=== PATIENT | female | born 1990 ===

== ENCOUNTER 2022-04-11 03:41 | Day surgery (SDC) | payer OTHER ==
[2022-04-11] MEDS ORDERED: Morphine 4 MG/ML VIAL IVPUSH ONE (03:59)
[2022-04-11] MEDS ORDERED: Ketorolac 30 MG/ML SDV IVPUSH ONE ×2 (03:59→08:01)
[2022-04-11] MEDS: Sodium Chloride 0.9% 10 ML Syringe FLUSH PRN ×5 (04:00→21:14)
[2022-04-11] MEDS ORDERED: Sodium Chloride 0.9% 1,000 ML IV SCH (04:00)
[2022-04-11 04:22] LABS: ESTIMATED GFR 89 mL/min (>60)
[2022-04-11] MEDS ORDERED: Iopamidol 755 MG/ML 150 ML Bottle IV ONE (05:00)
[2022-04-11] MEDS ORDERED: HYDROmorphone 2 MG/ML SDV IVPUSH STA (06:49)
[2022-04-11] MEDS ORDERED: Lactated Ringers 1,000 ML IV ONE (08:01)
[2022-04-11] MEDS ORDERED: Ondansetron 4 MG/2 ML SDV IVPUSH ONE (08:01)
[2022-04-11] MEDS ORDERED: Dexamethasone 4 MG/ML 5 ML MDV IVPUSH ONE (08:01)
[2022-04-11] MEDS ORDERED: Midazolam 1 MG/ML 2 ML SDV IV ONE (08:01)
[2022-04-11] MEDS ORDERED: Rocuronium 100 MG/10 ML MDV IV ONE (08:01)
[2022-04-11] MEDS ORDERED: Propofol 200 MG/20 ML SDV IV ONE (08:01)
[2022-04-11] MEDS ORDERED: HYDROmorphone 2 MG/ML SDV IV ONE (08:01)
[2022-04-11] MEDS ORDERED: Sugammadex Sodium 200 MG/2 ML VIAL IV ONE (08:01)
[2022-04-11] MEDS ORDERED: fentaNYL 100 MCG/2 ML SDV IV ONE (08:01)
[2022-04-11] MEDS ORDERED: Morphine 2 MG/ML SYRINGE IVPUSH PRN ×3 (08:04→13:16)
[2022-04-11] MEDS: Lactated Ringers 1,000 ML IV SCH ×2 (08:20→21:14)
[2022-04-11] MEDS: Piperacillin/Tazobactam 3.375 GM in Sodium Chloride 0.9% 50 ML IV SCH ×3 (08:36→20:27)
[2022-04-11] MEDS ORDERED: Bupivacaine 0.5%/EPINEPHrine 1:200,000 10 ML SDV INJECT ONE (12:30)
[2022-04-11] MEDS ORDERED: Ondansetron 4 MG/2 ML SDV IVPUSH PRN (13:16)
[2022-04-11] MEDS ORDERED: Lactated Ringers 1,000 ML IV SCH (13:30)
[2022-04-11] MEDS ORDERED: Piperacillin/Tazobactam 3.375 GM in Sodium Chloride 0.9% 50 ML IV SCH (13:30)
[2022-04-11] MEDS: Acetaminophen/HYDROcodone 325-5 MG Tab PO PRN ×2 (15:12→20:24)
[2022-04-12] MEDS: Acetaminophen/HYDROcodone 325-5 MG Tab PO PRN ×2 (01:38→08:45)
[2022-04-12] MEDS: Sodium Chloride 0.9% 10 ML Syringe FLUSH PRN (01:42)
[2022-04-12] MEDS: Piperacillin/Tazobactam 3.375 GM in Sodium Chloride 0.9% 50 ML IV SCH ×2 (01:42→08:45)
[2022-04-12] MEDS: Lactated Ringers 1,000 ML IV SCH (05:45)
== END 2022-04-12 11:15 | disposition home or self-care (01) ==
LOC: FB.ED 03:41 → FB.SDS 08:00 → FB.MS 08:02 → FB.SDS 04-12 11:15
PROVIDERS: ATTEND Surgery
DX: K35.80 Unspecified acute appendicitis (principal); Z88.8 Allergy status to other drugs, medicaments and biological substances; Z87.891 Personal history of nicotine dependence; Z01.812 Encounter for preprocedural laboratory examination; Z20.822 Contact with and (suspected) exposure to COVID-19
CPT/HCPCS: 00840; 36415; 44970; 74177; 80053; 81001; 82150; 83690; 84702; 85025; 87635; 88304; 94150; 96361; 96374; 96375; 99284; 99285; A9270; J1100; J1170; J1885; J2250; J2270; J2405; J2543; J2704; J3010; J3490; J7030; J7120; Q9967; U0002